=== PATIENT | male | born 2000 | race Caucasian/White ===

== ENCOUNTER 2022-01-26 23:22 | Inpatient (IN) | payer OTHER ==
[~2022-01-26 23:22] MED LIST: Iopamidol-370 76% 500 ML 1 ML ONE
[2022-01-26] MEDS ORDERED: Ondansetron PF 4 MG/2 ML Vial ONE (23:54)
[2022-01-27] MEDS ORDERED: Morphine 4 MG/ML VIAL ONE ×2 (00:09→00:51)
[2022-01-27 00:22] LABS: #Lymphocytes 0.6 thou/uL (1.20-3.40); #Monocytes 0.5 thou/uL (0.11-0.59); #Neutrophils 4.5 thou/uL (1.40-6.50); %Basophils 0.3 % (0.0-1.0); %Eosinophils 0.5 % (0.0-10.0); %Lymphocytes 11.3 % (28.0-48.0); %Monocytes 9.1 % (0.0-4.0); %Neutrophils 78.9 % (31.0-61.0); Hemoglobin 6.5 g/dL (14.0-18.0); Mean Corpuscular HGB CONC 34.7 g/dL (32.0-36.0); Mean Corpuscular Hemoglobin 32.9 pg (25.0-35.0); Mean Corpuscular Volume 94.8 fL (78.0-98.0); Platelet Count 47 thou/uL (130-400); RBC Distribution Width 11.8 % (11.5-14.5); Red Blood Cell (RBC) Count 1.98 mill/uL (4.00-5.20); White Blood Cell (WBC) Count 5.7 thou/uL (4.8-10.8)
[2022-01-27] MEDS ORDERED: Morphine 2 MG/ML VIAL SLOW IVP PRN (00:37)
[2022-01-27] MEDS ORDERED: Ondansetron PF 4 MG/2 ML Vial IVP PRN (00:37)
[2022-01-27] MEDS ORDERED: Dextrose 50% Abboject 50 ML SYRINGE SLOW IVP PRN (00:37)
[2022-01-27] MEDS ORDERED: hydrALAZINE 20 MG/ML VIAL SLOW IVP PRN (00:37)
[2022-01-27] MEDS ORDERED: Promethazine HCl 25 MG/ML VIAL IM PRN ×3 (00:37→02:42)
[2022-01-27] MEDS ORDERED: Dextrose 5% in Water 1,000 ML IV PRN (00:37)
[2022-01-27] MEDS ORDERED: traMADol HCl 50 MG TAB PO PRN (00:40)
[2022-01-27] MEDS ORDERED: Midazolam HCl 2 mg/2 ml Vial ONE (00:51)
[2022-01-27] MEDS ORDERED: Fentanyl 100 MCG/2 ML VIAL ONE ×2 (00:51→03:22)
[2022-01-27 01:00] LABS: #Basophils 0.1 thou/uL (0.0-0.2); #Lymphocytes 1.3 thou/uL (1.20-3.40); #Monocytes 0.6 thou/uL (0.11-0.59); #Neutrophils 6.2 thou/uL (1.40-6.50); %Basophils 1.1 % (0.0-1.0); %Eosinophils 0.1 % (0.0-10.0); %Monocytes 7.3 % (0.0-4.0); %Neutrophils 75.4 % (31.0-61.0); Hemoglobin 16.3 g/dL (14.0-18.0); Mean Corpuscular HGB CONC 33.9 g/dL (32.0-36.0); Mean Corpuscular Hemoglobin 30.9 pg (25.0-35.0); Mean Corpuscular Volume 91.1 fL (78.0-98.0); Mean Platelet Volume 7.1 fL (7.4-10.4); Platelet Count 165 thou/uL (130-400); RBC Distribution Width 12.3 % (11.5-14.5); Red Blood Cell (RBC) Count 5.26 mill/uL (4.00-5.20); White Blood Cell (WBC) Count 8.2 thou/uL (4.8-10.8)
[2022-01-27] MEDS ORDERED: Morphine 10 MG/ML VIAL ONE (01:05)
[2022-01-27 01:11] LABS: Albumin 3.7 g/dL (3.5-5.0)
[2022-01-27 01:12] LABS: Chloride 105 mmol/L (98-107); Potassium 4.1 mmol/L (3.5-5.1)
[2022-01-27 01:13] LABS: Calcium 8.4 mg/dL (7.8-10.44); Glucose 136 mg/dL (70-105)
[2022-01-27 01:14] LABS: Globulin 2.6 g/dL (2.4-3.5)
[2022-01-27 01:15] LABS: Anion Gap 16 mmol/L (10-20); Carbon Dioxide 18 mmol/L (22-29)
[2022-01-27 01:16] LABS: Alcohol Less than 10 mg/dL (Less than 10); Alkaline Phosphatase 110 U/L (50-130)
[2022-01-27 01:18] LABS: BUN (Urea Nitrogen) 21 mg/dL (8.4-21.0)
[2022-01-27 01:19] LABS: ALT (SGPT) 46 U/L (8-55); AST (SGOT) 70 U/L (10-45)
[2022-01-27 01:20] LABS: Lipase 38 U/L (8-78)
[2022-01-27] MEDS ORDERED: Ketorolac Tromethamine 30 MG/ML VIAL ONE (01:20)
[2022-01-27] MEDS ORDERED: Rocuronium Bromide 10 MG/ML (10ML VIAL) ONE (01:20)
[2022-01-27] MEDS ORDERED: Succinylcholine 200 MG/10 ml SYRINGE FS ONE (01:20)
[2022-01-27] MEDS ORDERED: Glycopyrrolate 0.2 MG/ML 5 ML SYRINGE ONE (01:20)
[2022-01-27] MEDS ORDERED: PHENYLEPHRINE-NS 100 MCG/ML 10 ML SYRINGE ONE (01:20)
[2022-01-27] MEDS ORDERED: Lidocaine 1% PF 5 ML VIAL ONE (01:20)
[2022-01-27] MEDS ORDERED: PROPOFOL 200 MG/20 ML VIAL ONE (01:20)
[2022-01-27] MEDS ORDERED: Piperacillin/Tazobactam 3.375 GM in Sodium Chloride 0.9% 100 ML IVPB SCH ×2 (01:30→05:15)
[2022-01-27] MEDS ORDERED: Sodium Chloride 0.9% 1,000 ML IV SCH ×3 (01:30→10:15)
[2022-01-27] MEDS ORDERED: cefOXitin 2 GM VIAL ONE (01:30)
[2022-01-27 01:35] LABS: Calc. Creatinine Clearance 0 mL/min (70-130)
[2022-01-27 01:43] LABS: Bilirubin, Total 0.4 mg/dL (0.2-1.2); Protein, Total 6.3 g/dL (6.0-8.3)
[2022-01-27 01:46] LABS: SARS-CoV-2 NAA Rapid Test Not Detected (NotDetected)
[2022-01-27] MEDS ORDERED: SUGAMMADEX SODIUM 200 MG/2 ML VIAL ONE (02:25)
[2022-01-27] MEDS ORDERED: Meperidine HCl/PF 25 MG/ML VIAL ONE (02:39)
[2022-01-27] MEDS ORDERED: Ketorolac Tromethamine 30 MG/ML VIAL IVP PRN (02:42)
[2022-01-27] MEDS ORDERED: Zolpidem Tartrate 5 MG TAB PO PRN (02:42)
[2022-01-27] MEDS ORDERED: Meperidine HCl/PF 25 MG/ML VIAL SLOW IVP PRN (02:42)
[2022-01-27] MEDS ORDERED: Ondansetron HCl/PF 4 MG/2 ML Vial IVP PRN (02:42)
[2022-01-27] MEDS ORDERED: diphenhydrAMINE 50 MG/ML VIAL IM PRN (02:42)
[2022-01-27] MEDS ORDERED: Promethazine HCl 25 MG/ML VIAL IVPB PRN (02:42)
[2022-01-27] MEDS ORDERED: Naloxone HCl 0.4 mg/ml Vial IV PRN (02:42)
[2022-01-27] MEDS ORDERED: fentaNYL Citrate/PF 2,000 MCG in Sodium Chloride 0.9% 60 ML IV PRN (02:42)
[2022-01-27] MEDS ORDERED: diphenhydrAMINE 25 MG CAP PO PRN (02:42)
[2022-01-27] MEDS ORDERED: diphenhydrAMINE 50 MG/ML VIAL IVP PRN (02:42)
[2022-01-27] MEDS ORDERED: Communication Order-Pharmacy FS SCH (02:45)
[2022-01-27 05:18] LABS: Lactic Acid 2.3 mmol/L (0.5-2.2)
[2022-01-27] MEDS: Acetaminophen 500 MG TAB PO SCH ×4 (05:25→23:52)
[2022-01-27 05:30] LABS: Anion Gap 13 mmol/L (10-20); BUN (Urea Nitrogen) 19 mg/dL (8.4-21.0); Calc. Creatinine Clearance 130 mL/min (70-130); Calcium 7.9 mg/dL (7.8-10.44); Carbon Dioxide 18 mmol/L (22-29); Chloride 107 mmol/L (98-107); Glucose 117 mg/dL (70-105); Magnesium 1.4 mg/dL (1.7-2.2); Potassium 5.2 mmol/L (3.5-5.1); Sodium 133 mmol/L (136-145)
[2022-01-27 05:32] LABS: Phosphorus 2.8 mg/dL (2.3-4.7)
[2022-01-27 05:41] LABS: Band 32 % (5-11); Hemoglobin 15.2 g/dL (14.0-18.0); Lymphocytes 4 % (28-48); MDiff Complete? YES; Mean Corpuscular HGB CONC 33.7 g/dL (32.0-36.0); Mean Platelet Volume 7.6 fL (7.4-10.4); Metamyelocyte 2 % (0-0); Monocytes 18 % (0-4); Neutrophil 44 % (31-61); Platelet Count 156 thou/uL (130-400); Platelet Morphology Comment Appears Adequate; RBC Distribution Width 12.1 % (11.5-14.5); RBC Morphology Normal; Red Blood Cell (RBC) Count 4.89 mill/uL (4.00-5.20); White Blood Cell (WBC) Count 2.4 thou/uL (4.8-10.8)
[2022-01-27] MEDS ORDERED: traMADol HCl 50 MG TAB PO SCH (06:00)
[2022-01-27] MEDS: Senokot S 8.6-50 MG TAB PO SCH ×2 (09:01→20:45)
[2022-01-27] MEDS: Polyethylene Glycol 3350 17 GM Packet PO SCH (09:01)
[2022-01-27] MEDS: Piperacillin/Tazobactam 3.375 GM in Sodium Chloride 0.9% 100 ML IVPB SCH ×2 (09:18→17:38)
[2022-01-27] MEDS ORDERED: Magnesium Sulfate In Water 4 GM in Premix Bag 1 BAG IVPB SCH (10:15)
[2022-01-27] MEDS: Sodium Chloride 0.9% 1,000 ML IV SCH ×2 (11:10→17:40)
[2022-01-28] MEDS: Piperacillin/Tazobactam 3.375 GM in Sodium Chloride 0.9% 100 ML IVPB SCH ×3 (02:03→17:17)
[2022-01-28] MEDS: Acetaminophen 500 MG TAB PO SCH ×4 (05:55→23:53)
[2022-01-28 06:24] LABS: #Lymphocytes 0.8 thou/uL (1.20-3.40); #Monocytes 0.4 thou/uL (0.11-0.59); #Neutrophils 6.8 thou/uL (1.40-6.50); %Basophils 0.2 % (0.0-1.0); %Eosinophils 0.2 % (0.0-10.0); %Lymphocytes 10.2 % (28.0-48.0); %Monocytes 5.5 % (0.0-4.0); Hemoglobin 12.1 g/dL (14.0-18.0); Mean Corpuscular Hemoglobin 31.9 pg (25.0-35.0); Mean Platelet Volume 8.1 fL (7.4-10.4); Platelet Count 107 thou/uL (130-400); RBC Distribution Width 12.1 % (11.5-14.5); Red Blood Cell (RBC) Count 3.78 mill/uL (4.00-5.20); White Blood Cell (WBC) Count 8.1 thou/uL (4.8-10.8)
[2022-01-28 06:38] LABS: Anion Gap 10 mmol/L (10-20); BUN (Urea Nitrogen) 13 mg/dL (8.4-21.0); Calc. Creatinine Clearance 138 mL/min (70-130); Calcium 8.4 mg/dL (7.8-10.44); Carbon Dioxide 24 mmol/L (22-29); Chloride 103 mmol/L (98-107); Glucose 87 mg/dL (70-105); Magnesium 1.9 mg/dL (1.7-2.2); Phosphorus 2.4 mg/dL (2.3-4.7); Potassium 4.4 mmol/L (3.5-5.1); Sodium 133 mmol/L (136-145)
[2022-01-28] MEDS: Famotidine 20 MG TAB PO SCH ×2 (09:30→20:32)
[2022-01-28] MEDS: Polyethylene Glycol 3350 17 GM Packet PO SCH (09:30)
[2022-01-28] MEDS: Senokot S 8.6-50 MG TAB PO SCH ×2 (09:30→20:32)
[2022-01-28] MEDS: Ibuprofen 200 MG TAB PO SCH ×4 (12:33→23:54)
[2022-01-28] MEDS: traMADol HCl 50 MG TAB PO PRN ×2 (12:34→17:16)
[2022-01-28] MEDS: traMADol HCl 50 MG TAB PO SCH ×3 (12:34→23:53)
[2022-01-28] MEDS: Ondansetron PF 4 MG/2 ML Vial IVP PRN (19:15)
[2022-01-28] MEDS: Promethazine HCl 12.5 MG in Sodium Chloride 0.9% 50 ML IVPB PRN (23:53)
[2022-01-29] MEDS: Piperacillin/Tazobactam 3.375 GM in Sodium Chloride 0.9% 100 ML IVPB SCH ×4 (02:55→16:53)
[2022-01-29] MEDS: Ibuprofen 200 MG TAB PO SCH ×2 (03:50→11:42)
[2022-01-29] MEDS: Ondansetron PF 4 MG/2 ML Vial IVP PRN (06:07)
[2022-01-29] MEDS: traMADol HCl 50 MG TAB PO SCH (06:37)
[2022-01-29] MEDS: Acetaminophen 500 MG TAB PO SCH (06:37)
[2022-01-29] MEDS: Promethazine HCl 12.5 MG in Sodium Chloride 0.9% 50 ML IVPB PRN ×2 (07:34→17:30)
[2022-01-29] MEDS ORDERED: Sodium Phosphate 15 MMOL in Sodium Chloride 0.9% 250 ML 250 ML IVPB SCH (08:00)
[2022-01-29] MEDS: traMADol HCl 50 MG TAB PO PRN (08:06)
[2022-01-29] MEDS: Senokot S 8.6-50 MG TAB PO SCH (08:06)
[2022-01-29] MEDS: Saccharomyces boulardii 250 MG CAP PO SCH (08:06)
[2022-01-29] MEDS: Polyethylene Glycol 3350 17 GM Packet PO SCH (08:06)
[2022-01-29] MEDS: Enoxaparin Sodium 40 MG/0.4 ML SYRINGE SC SCH ×2 (08:07→11:38)
[2022-01-29] MEDS: Famotidine 20 MG TAB PO SCH ×2 (08:07→22:52)
[2022-01-29] MEDS ORDERED: Acetaminophen/Codeine 30-300mg Tablet PO PRN (08:42)
[2022-01-29] MEDS ORDERED: Morphine 4 MG/ML VIAL SLOW IVP SCH (10:15)
[2022-01-29] MEDS: Acetaminophen 325 MG TAB PO SCH ×2 (11:38→18:26)
[2022-01-29] MEDS: Morphine 4 MG/ML VIAL SLOW IVP PRN (17:30)
[2022-01-29] MEDS ORDERED: Morphine 2 MG/ML VIAL SLOW IVP PRN (20:04)
[2022-01-29] MEDS: Sodium Chloride 0.9% 1,000 ML IV SCH (20:38)
[2022-01-29] MEDS: Ketorolac Tromethamine 30 MG/ML VIAL IVP SCH (20:38)
[2022-01-29] MEDS ORDERED: Famotidine/PF 20 mg/2ml Vial SLOW IVP SCH (22:30)
[2022-01-30] MEDS: Acetaminophen 325 MG TAB PO SCH ×4 (00:06→18:50)
[2022-01-30] MEDS: Senokot S 8.6-50 MG TAB PO SCH ×3 (00:06→20:49)
[2022-01-30] MEDS: Piperacillin/Tazobactam 3.375 GM in Sodium Chloride 0.9% 100 ML IVPB SCH ×3 (00:56→18:52)
[2022-01-30] MEDS: Ketorolac Tromethamine 30 MG/ML VIAL IVP SCH ×4 (00:56→20:48)
[2022-01-30] MEDS: Sodium Chloride 0.9% 1,000 ML IV SCH ×3 (05:05→20:49)
[2022-01-30] MEDS: Morphine 4 MG/ML VIAL SLOW IVP PRN (05:08)
[2022-01-30 05:34] LABS: #Lymphocytes 0.8 thou/uL (1.20-3.40); #Monocytes 0.7 thou/uL (0.11-0.59); %Basophils 0.1 % (0.0-1.0); %Eosinophils 0.5 % (0.0-10.0); %Lymphocytes 10.2 % (28.0-48.0); %Monocytes 9.7 % (0.0-4.0); %Neutrophils 79.5 % (31.0-61.0); Hemoglobin 10.6 g/dL (14.0-18.0); Mean Corpuscular HGB CONC 33.4 g/dL (32.0-36.0); Mean Corpuscular Hemoglobin 31.3 pg (25.0-35.0); Mean Corpuscular Volume 93.6 fL (78.0-98.0); Mean Platelet Volume 7.2 fL (7.4-10.4); Platelet Count 107 thou/uL (130-400); Red Blood Cell (RBC) Count 3.37 mill/uL (4.00-5.20); White Blood Cell (WBC) Count 7.6 thou/uL (4.8-10.8)
[2022-01-30 05:55] LABS: Anion Gap 15 mmol/L (10-20); BUN (Urea Nitrogen) 23 mg/dL (8.4-21.0); Calc. Creatinine Clearance 132 mL/min (70-130); Calcium 8.9 mg/dL (7.8-10.44); Carbon Dioxide 21 mmol/L (22-29); Chloride 104 mmol/L (98-107); Glucose 85 mg/dL (70-105); Phosphorus 2.9 mg/dL (2.3-4.7); Potassium 3.8 mmol/L (3.5-5.1); Sodium 136 mmol/L (136-145)
[2022-01-30] MEDS: Saccharomyces boulardii 250 MG CAP PO SCH (08:45)
[2022-01-30] MEDS: Polyethylene Glycol 3350 17 GM Packet PO SCH (08:45)
[2022-01-30] MEDS: Enoxaparin Sodium 40 MG/0.4 ML SYRINGE SC SCH (08:45)
[2022-01-30] MEDS: Famotidine/PF 20 mg/2ml Vial SLOW IVP SCH ×2 (08:46→20:48)
[2022-01-30] MEDS ORDERED: Sodium Chloride 0.9% 1,000 ML IV SCH (09:00)
[2022-01-30] MEDS ORDERED: Lactated Ringer's 1,000 ML IV SCH (09:00)
[2022-01-30] MEDS ORDERED: Potassium Phosphate 15 MMOL in Sodium Chloride 0.9% 250 ML 250 ML IVPB SCH (09:00)
[2022-01-31] MEDS: Acetaminophen 325 MG TAB PO SCH ×5 (00:04→23:38)
[2022-01-31] MEDS: Piperacillin/Tazobactam 3.375 GM in Sodium Chloride 0.9% 100 ML IVPB SCH ×3 (02:40→18:19)
[2022-01-31] MEDS: Ketorolac Tromethamine 30 MG/ML VIAL IVP SCH ×2 (02:40→10:04)
[2022-01-31 05:43] LABS: #Eosinphils 0.1 thou/uL (0.0-0.7); #Lymphocytes 0.7 thou/uL (1.20-3.40); #Monocytes 0.8 thou/uL (0.11-0.59); #Neutrophils 4.9 thou/uL (1.40-6.50); %Basophils 0.6 % (0.0-1.0); %Eosinophils 0.9 % (0.0-10.0); %Lymphocytes 10.7 % (28.0-48.0); %Monocytes 11.6 % (0.0-4.0); %Neutrophils 76.1 % (31.0-61.0); Hemoglobin 9.7 g/dL (14.0-18.0); Mean Corpuscular HGB CONC 33.4 g/dL (32.0-36.0); Mean Corpuscular Hemoglobin 31.5 pg (25.0-35.0); Mean Corpuscular Volume 94.3 fL (78.0-98.0); Mean Platelet Volume 7.2 fL (7.4-10.4); Platelet Count 117 thou/uL (130-400); RBC Distribution Width 12.2 % (11.5-14.5); Red Blood Cell (RBC) Count 3.09 mill/uL (4.00-5.20); White Blood Cell (WBC) Count 6.5 thou/uL (4.8-10.8)
[2022-01-31 06:05] LABS: Anion Gap 12 mmol/L (10-20); BUN (Urea Nitrogen) 20 mg/dL (8.4-21.0); Calc. Creatinine Clearance 134 mL/min (70-130); Calcium 8.3 mg/dL (7.8-10.44); Carbon Dioxide 20 mmol/L (22-29); Chloride 108 mmol/L (98-107); Glucose 85 mg/dL (70-105); Magnesium 1.9 mg/dL (1.7-2.2); Phosphorus 3.1 mg/dL (2.3-4.7); Potassium 3.7 mmol/L (3.5-5.1); Sodium 136 mmol/L (136-145)
[2022-01-31] MEDS ORDERED: PHOS-NAK 1 PKT PACK PO SCH (08:30)
[2022-01-31] MEDS: Famotidine/PF 20 mg/2ml Vial SLOW IVP SCH ×2 (10:00→21:49)
[2022-01-31] MEDS: Saccharomyces boulardii 250 MG CAP PO SCH (10:00)
[2022-01-31] MEDS: Enoxaparin Sodium 40 MG/0.4 ML SYRINGE SC SCH (10:01)
[2022-01-31] MEDS: Polyethylene Glycol 3350 17 GM Packet PO SCH (10:03)
[2022-01-31] MEDS: Senokot S 8.6-50 MG TAB PO SCH ×2 (10:03→20:37)
[2022-01-31] MEDS: Ibuprofen 200 MG TAB PO SCH ×2 (15:26→21:49)
[2022-01-31] MEDS: Sodium Chloride 0.9% 1,000 ML IV SCH (18:48)
[2022-02-01] MEDS: Acetaminophen/Codeine 30-300mg Tablet PO PRN ×3 (02:20→22:18)
[2022-02-01] MEDS: Piperacillin/Tazobactam 3.375 GM in Sodium Chloride 0.9% 100 ML IVPB SCH ×2 (02:21→10:19)
[2022-02-01] MEDS: Acetaminophen 325 MG TAB PO SCH ×4 (05:16→23:42)
[2022-02-01] MEDS: Ibuprofen 200 MG TAB PO SCH ×3 (05:16→21:24)
[2022-02-01 05:24] LABS: #Eosinphils 0.2 thou/uL (0.0-0.7); #Lymphocytes 0.9 thou/uL (1.20-3.40); #Monocytes 0.8 thou/uL (0.11-0.59); #Neutrophils 4.7 thou/uL (1.40-6.50); %Basophils 0.3 % (0.0-1.0); %Eosinophils 2.5 % (0.0-10.0); %Lymphocytes 14.1 % (28.0-48.0); %Monocytes 12.5 % (0.0-4.0); %Neutrophils 70.7 % (31.0-61.0); Hemoglobin 8.8 g/dL (14.0-18.0); Mean Corpuscular HGB CONC 33.7 g/dL (32.0-36.0); Mean Corpuscular Hemoglobin 31.3 pg (25.0-35.0); Mean Platelet Volume 6.8 fL (7.4-10.4); Platelet Count 137 thou/uL (130-400); RBC Distribution Width 12.2 % (11.5-14.5); Red Blood Cell (RBC) Count 2.82 mill/uL (4.00-5.20); White Blood Cell (WBC) Count 6.7 thou/uL (4.8-10.8)
[2022-02-01 05:44] VITALS: BMI 23.5
[2022-02-01 05:48] LABS: Anion Gap 11 mmol/L (10-20); BUN (Urea Nitrogen) 12 mg/dL (8.4-21.0); Calc. Creatinine Clearance 165 mL/min (70-130); Calcium 8.3 mg/dL (7.8-10.44); Carbon Dioxide 22 mmol/L (22-29); Chloride 105 mmol/L (98-107); Glucose 87 mg/dL (70-105); Magnesium 1.7 mg/dL (1.7-2.2); Phosphorus 3.8 mg/dL (2.3-4.7); Potassium 3.3 mmol/L (3.5-5.1); Sodium 135 mmol/L (136-145)
[2022-02-01] MEDS ORDERED: Magnesium 2 GM/50 ML(in water) 2 GM in Premix Bag 1 BAG IVPB SCH (09:00)
[2022-02-01] MEDS ORDERED: Potassium Chloride 20 MEQ TAB PO SCH (09:00)
[2022-02-01] MEDS: Ascorbic Acid 500 mg Chewable Tablet PO SCH ×2 (09:01→20:20)
[2022-02-01] MEDS: Enoxaparin Sodium 40 MG/0.4 ML SYRINGE SC SCH (09:01)
[2022-02-01] MEDS: Saccharomyces boulardii 250 MG CAP PO SCH (09:01)
[2022-02-01] MEDS: Famotidine/PF 20 mg/2ml Vial SLOW IVP SCH ×2 (09:01→20:20)
[2022-02-01] MEDS: Polyethylene Glycol 3350 17 GM Packet PO SCH (09:02)
[2022-02-01] MEDS: Senokot S 8.6-50 MG TAB PO SCH ×2 (09:02→20:20)
[2022-02-01] MEDS: Ferrous Sulfate 325 MG TAB PO SCH (17:09)
[2022-02-02] MEDS ORDERED: Ketorolac Tromethamine 30 MG/ML VIAL IVP SCH (02:45)
[2022-02-02] MEDS: Acetaminophen 325 MG TAB PO SCH ×2 (05:18→12:07)
[2022-02-02] MEDS: Ibuprofen 200 MG TAB PO SCH ×2 (05:18→14:09)
[2022-02-02 06:00] LABS: #Eosinphils 0.1 thou/uL (0.0-0.7); #Monocytes 0.9 thou/uL (0.11-0.59); #Neutrophils 8.1 thou/uL (1.40-6.50); %Basophils 0.2 % (0.0-1.0); %Eosinophils 1.3 % (0.0-10.0); %Lymphocytes 9.8 % (28.0-48.0); %Monocytes 8.9 % (0.0-4.0); %Neutrophils 79.8 % (31.0-61.0); Hemoglobin 9.3 g/dL (14.0-18.0); Mean Corpuscular HGB CONC 34.2 g/dL (32.0-36.0); Mean Corpuscular Hemoglobin 31.9 pg (25.0-35.0); Mean Corpuscular Volume 93.3 fL (78.0-98.0); Mean Platelet Volume 6.5 fL (7.4-10.4); Platelet Count 178 thou/uL (130-400); RBC Distribution Width 12.4 % (11.5-14.5); Red Blood Cell (RBC) Count 2.92 mill/uL (4.00-5.20); White Blood Cell (WBC) Count 10.1 thou/uL (4.8-10.8)
[2022-02-02 06:25] LABS: Anion Gap 10 mmol/L (10-20); BUN (Urea Nitrogen) 13 mg/dL (8.4-21.0); Calc. Creatinine Clearance 171 mL/min (70-130); Calcium 8.2 mg/dL (7.8-10.44); Carbon Dioxide 25 mmol/L (22-29); Chloride 103 mmol/L (98-107); Glucose 88 mg/dL (70-105); Magnesium 1.8 mg/dL (1.7-2.2); Potassium 3.8 mmol/L (3.5-5.1); Sodium 134 mmol/L (136-145)
[2022-02-02] MEDS: Famotidine/PF 20 mg/2ml Vial SLOW IVP SCH (08:19)
[2022-02-02] MEDS: Saccharomyces boulardii 250 MG CAP PO SCH (08:19)
[2022-02-02] MEDS: Ferrous Sulfate 325 MG TAB PO SCH (08:19)
[2022-02-02] MEDS: Enoxaparin Sodium 40 MG/0.4 ML SYRINGE SC SCH ×2 (08:19→08:23)
[2022-02-02] MEDS: Ascorbic Acid 500 mg Chewable Tablet PO SCH (08:19)
[2022-02-02] MEDS: Acetaminophen/Codeine 30-300mg Tablet PO PRN (10:25)
[2022-02-02] MEDS ORDERED: Cyclobenzaprine 10 MG TAB PO PRN (11:27)
[2022-02-02] MEDS: Polyethylene Glycol 3350 17 GM Packet PO SCH (11:31)
[2022-02-02] MEDS: Senokot S 8.6-50 MG TAB PO SCH (11:31)
[2022-02-02 12:24] VITALS: BP 119/68; TEMP 98.4
[2022-02-02 16:12] LABS: SARS-CoV-2 PCR by NAA Not Detected (NotDetected)
== END 2022-02-02 14:30 | disposition home or self-care (01) | DRG 958 ==
LOC: ERS 23:22 → SDC/OP 01-27 01:14 → SURG A 01-27 03:54
PROVIDERS: ADMIT Surgery; ATTEND Surgery
PROC: 0DTF0ZZ Resection of Right Large Intestine, Open Approach (ICD-10-PCS; principal; 2022-01-27)
DX: S36.530A Laceration of ascending [right] colon, initial encounter (principal); S27.321A Contusion of lung, unilateral, initial encounter; E87.2 Acidosis; S27.0XXA Traumatic pneumothorax, initial encounter; S36.439A Laceration of unspecified part of small intestine, initial encounter; K56.7 Ileus, unspecified; Z20.822 Contact with and (suspected) exposure to COVID-19; S80.812A Abrasion, left lower leg, initial encounter; Z28.311 Partially vaccinated for COVID-19; V43.52XA Car driver injured in collision with other type car in traffic accident, initial encounter; E83.42 Hypomagnesemia; E87.5 Hyperkalemia
CPT/HCPCS: 36415; 70450; 71045; 71260; 72125; 74018; 74019; 74177; 80048; 80053; 80307; 83605; 83690; 83735; 84100; 85025; 86850; 86900; 86901; 88307; 96374; 96375; 96376; G0390; J0694; J1650; J1885; J2175; J2250; J2270; J2405; J2543; J2550; J2704; J3010; J3475; J3490; J7050; J7120; Q9967; S0028; U0002; U0003; U0005

== ENCOUNTER 2022-02-06 10:35 | Outpatient (CLI) | payer OTHER | END 2022-02-06 10:36 | disposition home or self-care (01) | LOC: BICRAD 10:35 | PROVIDERS: ATTEND Surgery | DX: Z48.815 Encounter for surgical aftercare following surgery on the digestive system (principal); Z98.890 Other specified postprocedural states | CPT/HCPCS: 71046 ==

== ENCOUNTER 2022-02-07 05:49 | Inpatient (IN) | payer OTHER ==
[2022-02-07] MEDS ORDERED: Morphine 4 MG/ML VIAL ONE (06:24)
[2022-02-07] MEDS ORDERED: Ondansetron PF 4 MG/2 ML Vial ONE (06:25)
[2022-02-07 06:30] LABS: #Eosinphils 0.1 thou/uL (0.0-0.7); #Lymphocytes 0.8 thou/uL (1.20-3.40); #Monocytes 1.7 thou/uL (0.11-0.59); #Neutrophils 12.1 thou/uL (1.40-6.50); %Basophils 0.2 % (0.0-1.0); %Eosinophils 0.5 % (0.0-10.0); %Lymphocytes 5.4 % (28.0-48.0); %Monocytes 11.6 % (0.0-4.0); %Neutrophils 82.3 % (31.0-61.0); Hemoglobin 10.1 g/dL (14.0-18.0); Mean Corpuscular HGB CONC 33.3 g/dL (32.0-36.0); Mean Corpuscular Hemoglobin 30.8 pg (25.0-35.0); Mean Corpuscular Volume 92.6 fL (78.0-98.0); Mean Platelet Volume 6.2 fL (7.4-10.4); Platelet Count 558 thou/uL (130-400); RBC Distribution Width 12.5 % (11.5-14.5); Red Blood Cell (RBC) Count 3.28 mill/uL (4.00-5.20); White Blood Cell (WBC) Count 14.7 thou/uL (4.8-10.8)
[2022-02-07 07:49] LABS: Albumin 3.2 g/dL (3.5-5.0)
[2022-02-07 07:50] LABS: Chloride 95 mmol/L (98-107); Potassium 4.4 mmol/L (3.5-5.1)
[2022-02-07 07:51] LABS: Calcium 8.6 mg/dL (7.8-10.44); Sodium 131 mmol/L (136-145)
[2022-02-07 07:52] LABS: Globulin 3.8 g/dL (2.4-3.5); Glucose 89 mg/dL (70-105)
[2022-02-07 07:53] LABS: Anion Gap 20 mmol/L (10-20); Bilirubin, Total 0.7 mg/dL (0.2-1.2); Carbon Dioxide 20 mmol/L (22-29)
[2022-02-07 07:54] LABS: Alkaline Phosphatase 203 U/L (50-130)
[2022-02-07 07:55] LABS: Calc. Creatinine Clearance 0 mL/min (70-130)
[2022-02-07 07:56] LABS: BUN (Urea Nitrogen) 18 mg/dL (8.4-21.0)
[2022-02-07 07:57] LABS: ALT (SGPT) 43 U/L (8-55); AST (SGOT) 25 U/L (10-45)
[2022-02-07 07:58] LABS: Lipase 65 U/L (8-78)
[2022-02-07] MEDS ORDERED: hydrALAZINE 20 MG/ML VIAL SLOW IVP PRN (08:42)
[2022-02-07] MEDS ORDERED: traMADol HCl 50 MG TAB PO PRN ×3 (08:42→08:49)
[2022-02-07] MEDS ORDERED: Ondansetron PF 4 MG/2 ML Vial IVP PRN (08:42)
[2022-02-07] MEDS ORDERED: Sodium Chloride 0.9% 1,000 ML IV SCH (08:45)
[2022-02-07] MEDS ORDERED: traMADol HCl 50 MG TAB PO SCH (09:00)
[2022-02-07] MEDS ORDERED: Meropenem 1 GM in Sodium Chloride 0.9% 100 ML IVPB SCH (09:00)
[2022-02-07] MEDS: Morphine 2 MG/ML VIAL SLOW IVP PRN ×4 (10:46→16:42)
[2022-02-07] MEDS: Famotidine/PF 20 mg/2ml Vial SLOW IVP SCH ×2 (10:46→21:00)
[2022-02-07 11:12] VITALS: BMI 20.3
[2022-02-07] MEDS: Acetaminophen/Codeine 30-300mg Tablet PO SCH ×3 (11:28→22:50)
[2022-02-07] MEDS: Enoxaparin Sodium 40 MG/0.4 ML SYRINGE SC SCH (11:29)
[2022-02-07] MEDS ORDERED: Acetaminophen 500 MG TAB PO SCH (12:00)
[2022-02-07] MEDS ORDERED: D5W-AA 4.25% with LYTES 1,000 ML IV SCH (13:15)
[2022-02-07] MEDS ORDERED: AA 4.25 %/CALCIUM/LYTES/D5W 2,000 ML IV SCH (13:30)
[2022-02-07] MEDS ORDERED: Meropenem 2 GM in Admixture Fee 1 EACH IVPB SCH (14:00)
[2022-02-07] MEDS ORDERED: GASTROGRAFIN 30 ML BOT ONE (14:10)
[2022-02-07] MEDS ORDERED: Iopamidol-370 76% 500 ML 1 ML ONE (14:10)
[2022-02-07] MEDS: Meropenem 1 GM in Sodium Chloride 0.9% 100 ML IVPB SCH (18:48)
[2022-02-07 23:18] LABS: SARS-CoV-2 PCR by NAA Not Detected (NotDetected)
[2022-02-08] MEDS: Meropenem 1 GM in Sodium Chloride 0.9% 100 ML IVPB SCH ×3 (01:40→17:14)
[2022-02-08] MEDS: Morphine 2 MG/ML VIAL SLOW IVP PRN (03:23)
[2022-02-08] MEDS: Acetaminophen/Codeine 30-300mg Tablet PO SCH ×4 (05:14→23:28)
[2022-02-08 07:37] LABS: Hemoglobin 8.5 g/dL (14.0-18.0); Mean Corpuscular HGB CONC 32.6 g/dL (32.0-36.0); Mean Corpuscular Hemoglobin 30.7 pg (25.0-35.0); Mean Corpuscular Volume 94.2 fL (78.0-98.0); Mean Platelet Volume 6.1 fL (7.4-10.4); Platelet Count 420 thou/uL (130-400); RBC Distribution Width 12.5 % (11.5-14.5); Red Blood Cell (RBC) Count 2.76 mill/uL (4.00-5.20); White Blood Cell (WBC) Count 8.1 thou/uL (4.8-10.8)
[2022-02-08 07:45] LABS: Phosphorus 3.4 mg/dL (2.3-4.7)
[2022-02-08 07:49] LABS: Anion Gap 15 mmol/L (10-20); BUN (Urea Nitrogen) 20 mg/dL (8.4-21.0); Calc. Creatinine Clearance 138 mL/min (70-130); Calcium 8.1 mg/dL (7.8-10.44); Carbon Dioxide 22 mmol/L (22-29); Chloride 97 mmol/L (98-107); Glucose 113 mg/dL (70-105); Potassium 4.1 mmol/L (3.5-5.1); Sodium 130 mmol/L (136-145)
[2022-02-08 08:38] LABS: Band 16 % (5-11); Eosinophils 1 % (0-10); Lymphocytes 12 % (28-48); MDiff Complete? YES; Monocytes 15 % (0-4); Neutrophil 56 % (31-61); Platelet Morphology Comment Appears Increased; Polychromasia SLIGHT = 2-3 cells (100X) (0-2/hpf)
[2022-02-08] MEDS: Famotidine/PF 20 mg/2ml Vial SLOW IVP SCH ×2 (08:57→22:40)
[2022-02-08] MEDS: Enoxaparin Sodium 40 MG/0.4 ML SYRINGE SC SCH (08:59)
[2022-02-08] MEDS ORDERED: Ketamine 50 MG/ML (10ML VIAL) ONE (13:09)
[2022-02-09] MEDS: Meropenem 1 GM in Sodium Chloride 0.9% 100 ML IVPB SCH ×3 (02:02→17:00)
[2022-02-09] MEDS: Acetaminophen/Codeine 30-300mg Tablet PO SCH ×3 (05:27→23:48)
[2022-02-09] MEDS: Famotidine/PF 20 mg/2ml Vial SLOW IVP SCH ×2 (09:22→20:35)
[2022-02-09] MEDS: Enoxaparin Sodium 40 MG/0.4 ML SYRINGE SC SCH (09:24)
[2022-02-09] MEDS ORDERED: Acetaminophen/Codeine 30-300mg Tablet PO PRN (16:48)
[2022-02-09] MEDS ORDERED: Acetaminophen/Codeine 30-300mg Tablet PO SCH (17:00)
[2022-02-10] MEDS: Meropenem 1 GM in Sodium Chloride 0.9% 100 ML IVPB SCH ×3 (02:56→17:10)
[2022-02-10] MEDS: Acetaminophen/Codeine 30-300mg Tablet PO SCH ×3 (05:36→17:10)
[2022-02-10] MEDS: Famotidine/PF 20 mg/2ml Vial SLOW IVP SCH ×2 (08:26→20:29)
[2022-02-10] MEDS: Enoxaparin Sodium 40 MG/0.4 ML SYRINGE SC SCH (08:26)
[2022-02-11] MEDS: Meropenem 1 GM in Sodium Chloride 0.9% 100 ML IVPB SCH (00:51)
[2022-02-11] MEDS: Acetaminophen/Codeine 30-300mg Tablet PO SCH ×2 (00:51→05:15)
[2022-02-11 05:50] LABS: #Eosinphils 0.1 thou/uL (0.0-0.7); #Lymphocytes 1.5 thou/uL (1.20-3.40); #Monocytes 1.4 thou/uL (0.11-0.59); #Neutrophils 7.9 thou/uL (1.40-6.50); %Basophils 0.4 % (0.0-1.0); %Eosinophils 0.9 % (0.0-10.0); %Monocytes 12.6 % (0.0-4.0); %Neutrophils 72.1 % (31.0-61.0); Hemoglobin 10.1 g/dL (14.0-18.0); Mean Corpuscular Hemoglobin 30.6 pg (25.0-35.0); Mean Corpuscular Volume 92.7 fL (78.0-98.0); Mean Platelet Volume 5.9 fL (7.4-10.4); Platelet Count 484 thou/uL (130-400); RBC Distribution Width 12.7 % (11.5-14.5); Red Blood Cell (RBC) Count 3.29 mill/uL (4.00-5.20); White Blood Cell (WBC) Count 10.9 thou/uL (4.8-10.8)
[2022-02-11 06:18] LABS: Anion Gap 12 mmol/L (10-20); BUN (Urea Nitrogen) 12 mg/dL (8.4-21.0); Calc. Creatinine Clearance 136 mL/min (70-130); Calcium 8.7 mg/dL (7.8-10.44); Carbon Dioxide 26 mmol/L (22-29); Chloride 96 mmol/L (98-107); Glucose 95 mg/dL (70-105); Phosphorus 3.9 mg/dL (2.3-4.7); Potassium 4.4 mmol/L (3.5-5.1); Sodium 130 mmol/L (136-145)
[2022-02-11] MEDS: Enoxaparin Sodium 40 MG/0.4 ML SYRINGE SC SCH (08:22)
[2022-02-11] MEDS: Famotidine/PF 20 mg/2ml Vial SLOW IVP SCH (08:23)
[2022-02-11 08:26] VITALS: BP 116/68; TEMP 98.7
[2022-02-11] MEDS ORDERED: Amoxicillin/Potassium Clav 875 MG TAB PO SCH (09:00)
== END 2022-02-11 11:05 | disposition home or self-care (01) | DRG 394 ==
LOC: ERS 05:49 → SURG B 08:46
PROVIDERS: ADMIT Surgery; ATTEND Surgery
DX: K91.89 Other postprocedural complications and disorders of digestive system (principal); S36.409A Unspecified injury of unspecified part of small intestine, initial encounter; J90 Pleural effusion, not elsewhere classified; Z20.822 Contact with and (suspected) exposure to COVID-19; D72.829 Elevated white blood cell count, unspecified; Z91.010 Allergy to peanuts
CPT/HCPCS: 36415; 71045; 74177; 80048; 80053; 83690; 83735; 84100; 84134; 85025; 96374; 96375; J2185; J2270; J2405; J3490; J7050; Q9963; Q9967; S0028; U0003; U0005

== ENCOUNTER 2022-06-08 15:24 | Inpatient (IN) | payer OTHER ==
[~2022-06-08 15:24] MED LIST changes: +Heparin 1,000 UNITS/ML VIAL ONE; -Iopamidol-370 76% 500 ML 1 ML ONE
[2022-06-08] MEDS ORDERED: Iopamidol-370 76% 500 ML 1 ML ONE (15:29)
[2022-06-08] MEDS ORDERED: Piperacillin/Tazobactam 4.5 GM VIAL ONE (18:07)
[2022-06-08 18:33] LABS: #Eosinphils 0.1 thou/uL (0.0-0.7); #Lymphocytes 1.5 thou/uL (1.20-3.40); %Basophils 0.2 % (0.0-1.0); %Eosinophils 1.3 % (0.0-10.0); %Lymphocytes 13.7 % (28.0-48.0); %Monocytes 9.6 % (0.0-4.0); %Neutrophils 75.2 % (31.0-61.0); Hemoglobin 12.6 g/dL (14.0-18.0); Mean Corpuscular HGB CONC 33.3 g/dL (32.0-36.0); Mean Corpuscular Volume 80.9 fL (78.0-98.0); Mean Platelet Volume 6.8 fL (7.4-10.4); Platelet Count 264 thou/uL (130-400); RBC Distribution Width 13.2 % (11.5-14.5); Red Blood Cell (RBC) Count 4.66 mill/uL (4.00-5.20); White Blood Cell (WBC) Count 10.6 thou/uL (4.8-10.8)
[2022-06-08] MEDS ORDERED: Vancomycin 1.5 GRAM/300 ML BAG 1.5 GM in Premix Bag 1 BAG IVPB SCH (18:45)
[2022-06-08 18:46] LABS: ALT (SGPT) 10 U/L (8-55); AST (SGOT) 18 U/L (10-45); Alkaline Phosphatase 106 U/L (50-130); Anion Gap 18 mmol/L (10-20); BUN (Urea Nitrogen) 20 mg/dL (8.4-21.0); Bilirubin, Total 0.3 mg/dL (0.2-1.2); Calc. Creatinine Clearance 0 mL/min (70-130); Calcium 9.2 mg/dL (7.8-10.44); Carbon Dioxide 20 mmol/L (22-29); Chloride 101 mmol/L (98-107); Estimated GFR 115; Globulin 4.4 g/dL (2.4-3.5); Glucose 78 mg/dL (70-105); Lipase 10 U/L (8-78); Protein, Total 8.4 g/dL (6.0-8.3); Sodium 135 mmol/L (136-145)
[2022-06-08] MEDS ORDERED: Promethazine HCl 25 MG/ML VIAL IM PRN (21:33)
[2022-06-08] MEDS ORDERED: Dextrose 50% Abboject 50 ML SYRINGE SLOW IVP PRN (21:33)
[2022-06-08] MEDS ORDERED: Ondansetron PF 4 MG/2 ML Vial IVP PRN (21:33)
[2022-06-08] MEDS ORDERED: hydrALAZINE 20 MG/ML VIAL SLOW IVP PRN (21:33)
[2022-06-08] MEDS ORDERED: Dextrose 5% in Water 1,000 ML IV PRN (21:33)
[2022-06-08] MEDS ORDERED: Sodium Chloride 0.9% 1,000 ML IV SCH (21:45)
[2022-06-08 21:57] LABS: Bilirubin Negative (Negative); Blood, Urine Negative (Negative); Clarity Clear (Clear); Glucose, Urine (Dipstick) Normal (Negative); Ketone, Urine 40 mg/dL (Negative); Leukocyte Negative Leu/uL (Negative); Nitrite Negative (Negative); Protein, Urine (Dipstick) 10 mg/dL (Neg-Trace); Urobilinogen Normal mg/dL (Less than 2)
[2022-06-08 21:59] LABS: Specific Gravity, Urine Greater than 1.065 (1.002-1.036)
[2022-06-08] MEDS: Meropenem 1 GM in Sodium Chloride 0.9% 100 ML IVPB SCH (23:51)
[2022-06-08] MEDS: Acetaminophen 500 MG TAB PO PRN (23:52)
[2022-06-09 00:16] LABS: SARS-CoV-2 NAA Rapid Test Not Detected (NotDetected)
[2022-06-09 03:01] VITALS: BMI 20.3
[2022-06-09 06:07] LABS: #Eosinphils 0.1 thou/uL (0.0-0.7); #Lymphocytes 1.1 thou/uL (1.20-3.40); #Monocytes 1.1 thou/uL (0.11-0.59); #Neutrophils 7.3 thou/uL (1.40-6.50); %Basophils 0.2 % (0.0-1.0); %Eosinophils 1.3 % (0.0-10.0); %Lymphocytes 11.1 % (28.0-48.0); %Monocytes 11.5 % (0.0-4.0); %Neutrophils 75.9 % (31.0-61.0); Hemoglobin 11.2 g/dL (14.0-18.0); Mean Corpuscular HGB CONC 32.8 g/dL (32.0-36.0); Mean Corpuscular Hemoglobin 26.1 pg (25.0-35.0); Mean Corpuscular Volume 79.7 fL (78.0-98.0); Mean Platelet Volume 6.6 fL (7.4-10.4); Platelet Count 237 thou/uL (130-400); RBC Distribution Width 13.1 % (11.5-14.5); White Blood Cell (WBC) Count 9.6 thou/uL (4.8-10.8)
[2022-06-09 06:33] LABS: Anion Gap 14 mmol/L (10-20); BUN (Urea Nitrogen) 14 mg/dL (8.4-21.0); Calc. Creatinine Clearance 129 mL/min (70-130); Calcium 9.2 mg/dL (7.8-10.44); Carbon Dioxide 24 mmol/L (22-29); Chloride 100 mmol/L (98-107); Estimated GFR 127; Glucose 81 mg/dL (70-105); Phosphorus 3.4 mg/dL (2.3-4.7); Potassium 4.3 mmol/L (3.5-5.1); Sodium 134 mmol/L (136-145)
[2022-06-09] MEDS: Meropenem 1 GM in Sodium Chloride 0.9% 100 ML IVPB SCH ×3 (06:33→23:08)
[2022-06-09] MEDS ORDERED: Fentanyl 100 MCG/2 ML VIAL ONE (09:46)
[2022-06-09] MEDS ORDERED: Midazolam HCl 2 mg/2 ml Vial ONE (09:46)
[2022-06-09] MEDS: Famotidine/PF 20 mg/2ml Vial SLOW IVP SCH ×2 (09:50→20:05)
[2022-06-09] MEDS: Acetaminophen 500 MG TAB PO PRN ×2 (11:40→23:17)
[2022-06-09] MEDS: Morphine 4 MG/ML VIAL SLOW IVP PRN ×3 (14:35→20:10)
[2022-06-10] MEDS: Meropenem 1 GM in Sodium Chloride 0.9% 100 ML IVPB SCH ×3 (05:42→22:22)
[2022-06-10] MEDS: Acetaminophen 500 MG TAB PO PRN (05:54)
[2022-06-10 06:37] LABS: #Eosinphils 0.2 thou/uL (0.0-0.7); #Monocytes 0.9 thou/uL (0.11-0.59); #Neutrophils 4.6 thou/uL (1.40-6.50); %Basophils 0.3 % (0.0-1.0); %Eosinophils 2.3 % (0.0-10.0); %Lymphocytes 14.4 % (28.0-48.0); %Monocytes 12.9 % (0.0-4.0); Hemoglobin 11.7 g/dL (14.0-18.0); Mean Corpuscular HGB CONC 32.6 g/dL (32.0-36.0); Mean Corpuscular Volume 79.9 fL (78.0-98.0); Mean Platelet Volume 6.8 fL (7.4-10.4); Platelet Count 228 thou/uL (130-400); RBC Distribution Width 13.1 % (11.5-14.5); White Blood Cell (WBC) Count 6.6 thou/uL (4.8-10.8)
[2022-06-10 06:55] LABS: Anion Gap 15 mmol/L (10-20); BUN (Urea Nitrogen) 13 mg/dL (8.4-21.0); Calc. Creatinine Clearance 127 mL/min (70-130); Calcium 9.2 mg/dL (7.8-10.44); Carbon Dioxide 24 mmol/L (22-29); Chloride 97 mmol/L (98-107); Estimated GFR 126; Glucose 83 mg/dL (70-105); Phosphorus 3.2 mg/dL (2.3-4.7); Potassium 4.1 mmol/L (3.5-5.1); Sodium 132 mmol/L (136-145)
[2022-06-10] MEDS: Famotidine/PF 20 mg/2ml Vial SLOW IVP SCH ×2 (08:51→21:21)
[2022-06-10] MEDS ORDERED: Saccharomyces boulardii 250 MG CAP PO SCH (10:30)
[2022-06-10] MEDS: Morphine 4 MG/ML VIAL SLOW IVP PRN ×2 (18:31→21:21)
[2022-06-11] MEDS: Acetaminophen 500 MG TAB PO PRN (02:40)
[2022-06-11] MEDS: Meropenem 1 GM in Sodium Chloride 0.9% 100 ML IVPB SCH ×3 (05:07→21:48)
[2022-06-11 06:09] LABS: #Eosinphils 0.2 thou/uL (0.0-0.7); #Lymphocytes 1.1 thou/uL (1.20-3.40); #Monocytes 0.8 thou/uL (0.11-0.59); #Neutrophils 4.1 thou/uL (1.40-6.50); %Basophils 0.6 % (0.0-1.0); %Eosinophils 3.2 % (0.0-10.0); %Lymphocytes 18.3 % (28.0-48.0); %Monocytes 12.1 % (0.0-4.0); %Neutrophils 65.8 % (31.0-61.0); Hemoglobin 11.5 g/dL (14.0-18.0); Mean Corpuscular HGB CONC 31.8 g/dL (32.0-36.0); Mean Corpuscular Hemoglobin 25.3 pg (25.0-35.0); Mean Corpuscular Volume 79.5 fL (78.0-98.0); Mean Platelet Volume 6.5 fL (7.4-10.4); Platelet Count 245 thou/uL (130-400); RBC Distribution Width 13.2 % (11.5-14.5); Red Blood Cell (RBC) Count 4.55 mill/uL (4.00-5.20); White Blood Cell (WBC) Count 6.2 thou/uL (4.8-10.8)
[2022-06-11 06:41] LABS: Anion Gap 15 mmol/L (10-20); BUN (Urea Nitrogen) 12 mg/dL (8.4-21.0); Calc. Creatinine Clearance 127 mL/min (70-130); Calcium 9.2 mg/dL (7.8-10.44); Carbon Dioxide 27 mmol/L (22-29); Chloride 98 mmol/L (98-107); Estimated GFR 126; Glucose 84 mg/dL (70-105); Phosphorus 4.2 mg/dL (2.3-4.7); Sodium 136 mmol/L (136-145)
[2022-06-11] MEDS: Famotidine/PF 20 mg/2ml Vial SLOW IVP SCH ×2 (09:21→21:48)
[2022-06-11] MEDS: Saccharomyces boulardii 250 MG CAP PO SCH (09:21)
[2022-06-11] MEDS: Ibuprofen 800 MG TAB PO PRN (14:01)
[2022-06-12] MEDS: Meropenem 1 GM in Sodium Chloride 0.9% 100 ML IVPB SCH ×2 (05:10→13:53)
[2022-06-12] MEDS: Famotidine/PF 20 mg/2ml Vial SLOW IVP SCH (08:29)
[2022-06-12] MEDS: Saccharomyces boulardii 250 MG CAP PO SCH (08:29)
[2022-06-12] MEDS: Ibuprofen 800 MG TAB PO PRN (08:29)
[2022-06-12] MEDS: Acetaminophen 500 MG TAB PO PRN (12:34)
[2022-06-12 15:55] VITALS: BP 106/71; TEMP 97.6
== END 2022-06-12 17:48 | disposition home or self-care (01) | DRG 443 ==
LOC: ERS 15:24 → SURG A 20:23
PROVIDERS: ADMIT Surgery; ATTEND Surgery
PROC: 0F9130Z Drainage of Right Lobe Liver with Drainage Device, Percutaneous Approach (ICD-10-PCS; principal; 2022-06-09)
PROC: 02HV33Z Insertion of Infusion Device into Superior Vena Cava, Percutaneous Approach (ICD-10-PCS; 2022-06-11)
PROC: B5181ZA Fluoroscopy of Superior Vena Cava using Low Osmolar Contrast, Guidance (ICD-10-PCS; 2022-06-11)
PROC: B548ZZA Ultrasonography of Superior Vena Cava, Guidance (ICD-10-PCS; 2022-06-11)
DX: K75.0 Abscess of liver (principal); Z91.018 Allergy to other foods; Z91.09 Other allergy status, other than to drugs and biological substances
CPT/HCPCS: 36415; 36569; 49020; 74177; 77002; 80048; 80053; 81003; 83605; 83690; 83735; 84100; 85025; 87040; 87070; 87077; 87186; 87205; 96365; 96366; 96367; C1729; C1751; J1644; J2185; J2250; J2270; J2405; J2543; J3010; J3370; J3490; J7050; Q9967; S0028; U0002

== ENCOUNTER 2022-06-14 11:11 | Emergency (ER) | payer OTHER | END 2022-06-14 12:35 | disposition home or self-care (01) | LOC: ERS 11:11 | DX: K75.0 Abscess of liver (principal) | CPT/HCPCS: 99283 ==

== ENCOUNTER 2022-06-26 13:20 | Outpatient (CLI) | payer OTHER ==
[~2022-06-26 13:20] MED LIST changes: -Heparin 1,000 UNITS/ML VIAL ONE; +Iopamidol 370 76% 100 ML VIAL ONE
== END 2022-06-26 13:21 | disposition home or self-care (01) ==
LOC: CT 13:20
PROVIDERS: ATTEND Internal Medicine Infectious Disease
DX: K75.0 Abscess of liver (principal); K59.00 Constipation, unspecified
CPT/HCPCS: 74177; Q9967

== ENCOUNTER 2022-09-11 13:31 | Outpatient (CLI) | payer OTHER | END 2022-09-11 13:32 | disposition home or self-care (01) | LOC: CT 13:31 | PROVIDERS: ATTEND Surgery | DX: K75.0 Abscess of liver (principal) | CPT/HCPCS: 74177 ==